=== PATIENT | female | born 2005 | race Caucasian/White ===

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

== ENCOUNTER → 2023-09-30 | Outpatient (CLI) | payer OTHER ==
[~2023-09-30] MED LIST: ALBU90OI INH; AMOX25SU; AMOX25SU PO; AMOX50SU PO; ANTOXYBENA RIGHTEAR; Cefdinir250 MG/5 M PO; Ciprodex Otic7.5 ML RIGHTEAR; IBUPROFEN PRN; ORAL ANTIBIOTIC; PROM12.5S PR; RXANTBENOT AU; RXONDA4ODT MM; SULTRIEL PO
[2023-10-03 14:03] LABS: APTIMA MEDIA TYPE Urine; C. TRACHOMATIS BY TMA Negative (Negative); N. GONORRHOEAE BY TMA Negative (Negative); SPECIMEN SOURCE Urine
== END | disposition home or self-care (01) ==
LOC: LAB SHORT 14:31 → LAB 14:31
PROVIDERS: Obstetrics & Gynecology
DX: Z34.90 Encounter for supervision of normal pregnancy, unspecified, unspecified trimester (principal)
CPT/HCPCS: 36415; 87491; 87591

== ENCOUNTER → 2024-03-10 | Outpatient (CLI) | payer OTHER | END | disposition home or self-care (01) | LOC: LAB SHORT 15:28 → LAB 15:28 | DX: O99.213 Obesity complicating pregnancy, third trimester (principal); E66.9 Obesity, unspecified | CPT/HCPCS: 87081; 87150 ==

== ENCOUNTER 2024-03-30 08:14 | Inpatient (IN) | payer OTHER ==
[~2024-03-30] VITALS: Ht 157.5 cm; Wt 131.0 kg
[2024-03-30] VITALS (22 sets, daily range): BP systolic 112–148; BP diastolic 53–112
[2024-03-30] MEDS ORDERED: FentaNYL Citrate 50 MCG/ML 2 ML Injection IV PRN (11:30)
[2024-03-30] MEDS ORDERED: FentaNYL 2mcg/ml-Bup 0.1% Epd 250 ML EPI PRN (11:30)
[2024-03-30] MEDS ORDERED: Lactated Ringer's 1,000 ML IV SCH ×3 (11:30→14:35)
[2024-03-30] MEDS ORDERED: ePHEDrine Sulfate 50 MG/ML 1ML Injection XX PRN (11:30)
[2024-03-30] MEDS ORDERED: Methylergonovine Maleate 0.2MG / ML 1ML Amp IM PRN (11:35)
[2024-03-30] MEDS ORDERED: OXYTOCIN/RINGER'S LACTATE 500 ML IV PRN (11:35)
[2024-03-30] MEDS ORDERED: Misoprostol 200 MCG Tab PR PRN ×2 (11:35→20:20)
[2024-03-30] MEDS ORDERED: Oxytocin 10 Unit / ML Vial IM PRN (11:35)
[2024-03-30] MEDS ORDERED: Calcium Carbonate 500 MG Tab Chew PO SCH (11:35)
[2024-03-30] MEDS ORDERED: Tranexamic Acid 100 ML IV SCH ×2 (11:35→21:10)
[2024-03-30] MEDS ORDERED: Lactated Ringer's 1,000 ML IV PRN (11:35)
[2024-03-30] MEDS ORDERED: Acetaminophen 500 MG Tab PO PRN (11:35)
[2024-03-30] MEDS ORDERED: Ondansetron HCl 2 MG / ML 2ML Vial IV PRN ×2 (11:35→20:25)
[2024-03-30] MEDS ORDERED: Carboprost Tromethamine 250 MCG/ML 1ML Amp IM PRN (11:35)
[2024-03-30] MEDS ORDERED: Misoprostol 200 MCG Tab BC PRN (11:35)
[2024-03-30 12:15] LABS: BASOPHILS ABSOLUTE AUTO 0.02 K/mm3 (0.00-0.23); BASOPHILS PERCENT AUTO 0 % (0-2); EOSINOPHILS ABSOLUTE AUTO 0.12 K/mm3 (0.00-0.68); EOSINOPHILS PERCENT AUTO 1 % (0-6); Hematocrit 37.5 % (33.0-51.0); Hemoglobin 13.1 g/dL (11.5-16.0); IMMATURE GRAN ABSOLUTE AUTO 0.04 K/mm3 (0.00-0.10); IMMATURE GRAN PERCENT AUTO 0 % (0-1); LYMPHOCYTES ABSOLUTE AUTO 2.09 K/mm3 (0.84-5.20); LYMPHOCYTES PERCENT AUTO 15 % (21-46); MONOCYTES ABSOLUTE AUTO 0.65 K/mm3 (0.16-1.47); MONOCYTES PERCENT AUTO 5 % (4-13); Mean Corpuscular HGB 30.2 pg (26.0-34.0); Mean Corpuscular HGB Conc 34.9 g/dL (31.5-36.5); Mean Corpuscular Volume 86 fL (80-100); NEUTROPHILS PERCENT AUTO 79 % (41-73); Platelet Count 241 K/mm3 (150-400); RDW Coefficient Variation 14.5 % (11.7-14.2); RDW Standard Deviation 45.3 fL (35.1-46.3); Red Blood Cell Count 4.34 M/mm3 (3.80-5.20); White Blood Cell Count 13.62 K/mm3 (4.00-11.30)
[2024-03-30] MEDS ORDERED: PRENATAL TABLE1 EAC2 PO (12:42)
[2024-03-30] MEDS ORDERED: FentaNYL Citrate 50 MCG/ML 2 ML Injection ONE ×2 (13:00→19:14)
[2024-03-30] MEDS ORDERED: OXYTOCIN/RINGER'S LACTATE 500 ML IV SCH ×2 (14:35→20:30)
[2024-03-30] MEDS ORDERED: Citric Acid/Sodium Citrate 30 ML BTL PO STA (17:53)
[2024-03-30] MEDS ORDERED: CeFAZolin Sodium 3,000 MG in NS 100 ML IV SCH (17:55)
[2024-03-30] MEDS ORDERED: Metoclopramide HCl 5MG / ML 2ML Vial IV ONE (17:55)
[2024-03-30] MEDS ORDERED: Bupivacaine 0.5% HCl 5 MG/ML 30MLVIAL ONE (18:12)
[2024-03-30] MEDS ORDERED: Morphine Sulfate/PF 1 MG/ML 10MLVIAL ONE (18:12)
[2024-03-30] MEDS ORDERED: Oxytocin 10 Unit / ML Vial ONE (18:42)
[2024-03-30] MEDS ORDERED: propofoL 20 ML IV ONE ×2 (18:49→19:22)
[2024-03-30] MEDS ORDERED: Phenylephrine HCl 100 MCG/ML-NS 10MLSYR (1MG/10ML) ONE (18:49)
[2024-03-30] MEDS ORDERED: Ondansetron HCl 2 MG / ML 2ML Vial ONE (19:14)
[2024-03-30 19:19] LABS: PCO2 Cord - Arterial 67.5 mmHg (40-50); PO2 Cord - Arterial < 14.0 mmHg (16-20)
[2024-03-30 19:20] LABS: PO2 Cord - Venous 15.7 mmHg (28-32); pH Umbilical Cord - Venous 7.29 (7.26-7.35)
--- NOTE | 2024-03-30 19:20 | NUR ---
03/30/241919 MATT FARAH CHARTING ERROR. CAGLE CATHETER WAS PRESENT PRIOR TO OR ARRIVAL.
[2024-03-30] MEDS ORDERED: Ketorolac Tromethamine 30mg Vial ONE (19:43)
[2024-03-30] MEDS ORDERED: Promethazine HCl 25 MG Tab PO PRN (20:20)
[2024-03-30] MEDS ORDERED: Simethicone 80 MG Chew PO PRN (20:20)
[2024-03-30] MEDS ORDERED: Rho(D) Immune Globulin 300 MCG / SYR IM ONE (20:20)
[2024-03-30] MEDS ORDERED: Polyethylene Glycol 3350 17 gm PO PRN (20:20)
[2024-03-30] MEDS ORDERED: OxyCODONE HCL 5 MG TAB PO PRN ×2 (20:25→20:30)
[2024-03-30] MEDS ORDERED: DiphenhydrAMINE HCL 25 MG Cap PO PRN (20:25)
[2024-03-30] MEDS ORDERED: Lanolin Cream TOP PRN (20:25)
[2024-03-30] MEDS ORDERED: Magnesium Hydroxide Conc 10 ML UDC PO PRN (20:25)
[2024-03-30] MEDS ORDERED: Methylergonovine Maleate 0.2 MG Tab PO PRN (20:30)
[2024-03-30] MEDS ORDERED: Measles/Mumps/Rubella Vaccine 0.5 ML Vial SC ONE (20:30)
[2024-03-30] MEDS ORDERED: OXYTOCIN/RINGER'S LACTATE 16.66666666 ML IV SCH (20:30)
[2024-03-30] MEDS ORDERED: Ketorolac Tromethamine 30mg Vial IV SCH (21:00)
[2024-03-30] MEDS ORDERED: Misoprostol 200 MCG Tab BC ONE (21:10)
[2024-03-31] MEDS ORDERED: Ibuprofen 400 MG Tab PO SCH
[2024-03-31] MEDS ORDERED: Acetaminophen 500 MG Tab PO SCH ×2
[2024-03-31 00:34] VITALS: BP 125/58
[2024-03-31 05:10] VITALS: BP 130/65
--- NOTE | 2024-03-31 06:00 | NUR ---
REPORT FROM LORETTA AUGUSTIN, PT RESTING IN BED HOLDING NB. DENIES ANY NEEDS AT THIS TIME. RATES PAIN A 3/10.
[2024-03-31 06:35] LABS: BASOPHILS ABSOLUTE AUTO 0.05 K/mm3 (0.00-0.23); BASOPHILS PERCENT AUTO 0 % (0-2); EOSINOPHILS ABSOLUTE AUTO 0.04 K/mm3 (0.00-0.68); EOSINOPHILS PERCENT AUTO 0 % (0-6); Hematocrit 30.6 % (33.0-51.0); Hemoglobin 10.7 g/dL (11.5-16.0); IMMATURE GRAN ABSOLUTE AUTO 0.07 K/mm3 (0.00-0.10); IMMATURE GRAN PERCENT AUTO 0 % (0-1); LYMPHOCYTES ABSOLUTE AUTO 1.66 K/mm3 (0.84-5.20); LYMPHOCYTES PERCENT AUTO 9 % (21-46); MONOCYTES ABSOLUTE AUTO 0.78 K/mm3 (0.16-1.47); MONOCYTES PERCENT AUTO 4 % (4-13); Mean Corpuscular HGB 30.2 pg (26.0-34.0); Mean Corpuscular Volume 86 fL (80-100); Mean Platelet Volume 9.7 fL (9.1-12.4); NEUTROPHILS ABSOLUTE AUTO 16.53 K/mm3 (1.96-9.15); NEUTROPHILS PERCENT AUTO 86 % (41-73); Platelet Count 161 K/mm3 (150-400); RDW Coefficient Variation 14.6 % (11.7-14.2); RDW Standard Deviation 46.1 fL (35.1-46.3); Red Blood Cell Count 3.54 M/mm3 (3.80-5.20); White Blood Cell Count 19.13 K/mm3 (4.00-11.30)
[2024-03-31 07:32] VITALS: BP 137/65
[2024-03-31] MEDS ORDERED: Polyethylene Glycol 3350 17 gm PO SCH (09:00)
[2024-03-31] MEDS ORDERED: Prenatal Vit/FE Fumarate/FA 1 Tab PO SCH (09:00)
[2024-03-31] MEDS ORDERED: Ketorolac Tromethamine 30mg Vial IV PRN (11:40)
[2024-03-31 11:43] VITALS: BP 148/84
[2024-03-31 14:39] LABS: Creatinine, Urine Random 44.1 mg/dL (27.00-270.00); Protein, Urine Random 34.3 mg/dL (0.0-11.9); Protein/Creat Ratio, Ur Random 0.8
[2024-03-31 15:52] VITALS: BP 145/78
--- NOTE | 2024-03-31 16:13 | NUR ---
Pt back from ambulating in hallway, reports able to pass flatus a few times. Denies other needs at this time.
[2024-03-31 16:23] LABS: Albumin, Blood 2.1 g/dL (3.4-5.0); Albumin/Globulin Ratio 0.5 (0.8-1.8); Bilirubin, Total 0.7 mg/dL (0.1-1.0); Creatinine, Blood 0.66 mg/dL (0.40-1.00); Globulin, Blood 4.1 g/dL (2.2-4.0); Potassium, Blood 3.6 mmol/L (3.5-5.5); Total Protein, Blood 6.2 g/dL (6.4-8.2)
[2024-03-31 20:59] VITALS: BP 137/72
[2024-04-01] VITALS (25 sets, daily range): BP systolic 124–173; BP diastolic 60–98
--- NOTE | 2024-04-01 08:27 | NUR ---
CNM at bedside for last 2 elevated BP. Cuff changed to upper arm, larger cuff after first elevated BP and repeat also elevated. Pt is also having 5/10 pain and was just medicated by RN. Will repeat in 30 minutes per CNM to evaluate if elevated BP related to pain.
--- NOTE | 2024-04-01 14:20 | NUR ---
BRUCE DESAI, RETURNED CALL REGARDING SEVERE RANGE BLOOD PRESSURES. ORDERS TO START MAGNESIUM X12 HOURS AND NIFEDIPNE 30XL RECEIVED. NO ADDITIONAL LAB ORDERS AT THIS TIME.
[2024-04-01] MEDS ORDERED: Magnesium Sulfate 500 ML IV SCH (14:25)
[2024-04-01] MEDS ORDERED: Lactated Ringer's 1,000 ML IV SCH (14:25)
[2024-04-01] MEDS ORDERED: Calcium Gluconate 0.465 mEq/ml 10 ml Vial IV PRN (14:25)
[2024-04-01] MEDS ORDERED: Magnesium Sul 4 GM/Water100 ML 100 ML IV ONE (14:25)
[2024-04-01] MEDS ORDERED: Magnesium Sulf 2 GM/Water 50ML 50 ML IV SCH (14:25)
[2024-04-01] MEDS ORDERED: NIFEdipine 30 MG TabCR PO SCH (14:30)
[2024-04-01 18:21] LABS: BASOPHILS ABSOLUTE AUTO 0.02 K/mm3 (0.00-0.23); BASOPHILS PERCENT AUTO 0 % (0-2); EOSINOPHILS ABSOLUTE AUTO 0.13 K/mm3 (0.00-0.68); EOSINOPHILS PERCENT AUTO 1 % (0-6); Hematocrit 33.4 % (33.0-51.0); Hemoglobin 11.3 g/dL (11.5-16.0); IMMATURE GRAN ABSOLUTE AUTO 0.12 K/mm3 (0.00-0.10); IMMATURE GRAN PERCENT AUTO 1 % (0-1); LYMPHOCYTES ABSOLUTE AUTO 1.53 K/mm3 (0.84-5.20); LYMPHOCYTES PERCENT AUTO 11 % (21-46); MONOCYTES ABSOLUTE AUTO 0.46 K/mm3 (0.16-1.47); MONOCYTES PERCENT AUTO 3 % (4-13); Mean Corpuscular HGB 30.2 pg (26.0-34.0); Mean Corpuscular HGB Conc 33.8 g/dL (31.5-36.5); Mean Corpuscular Volume 89 fL (80-100); Mean Platelet Volume 9.3 fL (9.1-12.4); NEUTROPHILS ABSOLUTE AUTO 11.62 K/mm3 (1.96-9.15); NEUTROPHILS PERCENT AUTO 84 % (41-73); Platelet Count 238 K/mm3 (150-400); RDW Coefficient Variation 15.2 % (11.7-14.2); Red Blood Cell Count 3.74 M/mm3 (3.80-5.20); White Blood Cell Count 13.88 K/mm3 (4.00-11.30)
[2024-04-01 19:02] LABS: Albumin, Blood 2.3 g/dL (3.4-5.0); Albumin/Globulin Ratio 0.5 (0.8-1.8); Bilirubin, Total 0.5 mg/dL (0.1-1.0); Bun/Creatinine Ratio 10.9 (12.0-20.0); Calcium, Blood 9.1 mg/dL (8.5-10.1); Creatinine, Blood 0.64 mg/dL (0.40-1.00); Globulin, Blood 4.5 g/dL (2.2-4.0); Potassium, Blood 3.3 mmol/L (3.5-5.5); Total Protein, Blood 6.8 g/dL (6.4-8.2)
--- NOTE | 2024-04-01 19:38 | NUR ---
UPDATE; CALL PLACED TO TESHA GOMEZ CNM REGARDING THE RESULTS OF THE PTS EKG. EKG SHOWED SINUS TACH. TESHA NOTIFIED THAT PTS HEART RATE CONTINUES TO SUSTAIN IN THE 120-130'S. CURRENT B/P IS 143/94. THIS RN ASKED IF IT WAS POSSIBLE TO GIVE THE PT LABETALOL WELL, TESHA ABRRERA TO CONSULT WITH REGARDING THIS. TESHA BARRERA UPDATED THAT PT CONTINUES TO BE ASYMPTOMATIC OF HYPERTENSION/TACHYCARDIA. PT DENIES ANY CHEST PAIN, PALPATATIONS, SOB, HEADACHE, VISUAL CHANGES OR EPIGASTRIC PAIN. AT THIS TIME, ORDERS TO CONTINUE MONITORING PT.
--- NOTE | 2024-04-01 21:45 | NUR ---
CALL FROM PROVIDER; CALL FROM TESHA GOMEZ REGARDING PREVIOUS CALL, REFER TO PREVIOUS NOTE. PER Lisseth GOMEZ HE AND DR. INGRAM CONSULTED AND AT THIS TIME THEY WOULD LIKE TO NOT GIVE ANY OTHER ANTIHYPERTENSIVE MEDS. PATRICIA Byrd UPDATED THAT PTS HEART RATE IS 100-110'S.
--- NOTE | 2024-04-01 22:25 | NUR ---
CALL PLACED TO PROVIDER; SPOKE WITH Lisseth GOMEZ REGARDING PTS B/P'S, THE MOST RECENT BEING . GISELLE TO CONSULT WITH AND CALL ME BACK WITH ORDERS.
--- NOTE | 2024-04-01 22:27 | NUR ---
CALL FROM GISELLE; PER Lisseth GOMEZ, HIM AND CONSULTED AND AT THIS TIME GIVE THE PT 200MG OF LABETALOL PO NOW AND THEN START THE PT ON 200MG OF PO LABETALOL BID STARTING 04/02/24 AT 0900. IF PTS SYSTOLIC PRESSURE IS NOT LESS THAN 160 IN 1 HOUR FROM PO LABETALOL ADMINISTRATION, GIVE 30MG OF PO PROCARDIA XL.
[2024-04-01] MEDS ORDERED: Labetalol HCL 100 MG TAB PO ONE (22:35)
[2024-04-02] VITALS (12 sets, daily range): BP systolic 131–155; BP diastolic 66–93
--- NOTE | 2024-04-02 01:35 | NUR ---
CONFIRMED WITH Lisseth GOMEZ CNM THAT MAGNESIUM SULFATE DRIP IS TO BE TURNED OFF AT 12 HOURS AFTER MAGNESIUM SULFATE INITATION TIME. PER Lisseth GOMEZ CNM, TURN OFF MAGNESIUM SULFATE DRIP AT 0317 TODAY, 04/02/2024.
--- NOTE | 2024-04-02 03:18 | NUR ---
MAGNESIUM DRIP OFF AT 0318.
--- NOTE | 2024-04-02 06:05 | NUR ---
UPDATE TO PROVIDER ON PTS STATUS, GISELLE BARRERA UPDATED ON PTS LAST B/P AND NEURO EXAMINE. CONTINUE TO MONITOR AT THIS TIME.
[2024-04-02] MEDS ORDERED: Labetalol HCL 100 MG TAB PO SCH (09:00)
--- NOTE | 2024-04-02 17:00 | NUR ---
Dr. Rojas updated about continued elevated BPs. Pt ok to discharge home today, take previously prescibed medication, labetalol, and return to [facility] tomorrow for PPFU and bp check.
[2024-04-02] MEDS ORDERED: LABE200 PO (17:13)
[2024-04-02] MEDS ORDERED: NIFE30ER PO (17:14)
[2024-04-02] MEDS ORDERED: OXYC5 PO (17:14)
[2024-04-02] MEDS ORDERED: IBUP800 PO (17:15)
--- NOTE | 2024-04-02 18:15 | NUR ---
No acute changes t/o shift. ID bands matched w/nb and verification form. Pt verbalized understanding of follow up at [facility] and medication to take this evening and in am. Denies additional needs/questions/concerns. Pt d/c'd home ambulatory to care of SO and family.
== END 2024-04-02 18:15 | disposition home or self-care (01) | DRG 788 ==
LOC: OBS 08:14 → BC 08:14 → OBS 10:59 → BC 11:00
PROVIDERS: Advanced Practice Midwife; Family Medicine; Obstetrics & Gynecology; ADMIT Obstetrics & Gynecology
PROC: 10H07YZ Insertion of Other Device into Products of Conception, Via Natural or Artificial Opening (ICD-10-PCS; 2024-03-30)
PROC: 10D00Z1 Extraction of Products of Conception, Low, Open Approach (ICD-10-PCS; principal; 2024-03-30 17:45)
DX: O76 Abnormality in fetal heart rate and rhythm complicating labor and delivery (principal); O14.94 Unspecified pre-eclampsia, complicating childbirth; O99.214 Obesity complicating childbirth; E66.01 Morbid (severe) obesity due to excess calories; Z3A.38 38 weeks gestation of pregnancy; Z37.0 Single live birth; O99.334 Smoking (tobacco) complicating childbirth; F17.200 Nicotine dependence, unspecified, uncomplicated; Z88.1 Allergy status to other antibiotic agents; Z79.82 Long term (current) use of aspirin; Z79.899 Other long term (current) drug therapy
CPT/HCPCS: 36415; 51702; 59025; 80053; 82570; 82803; 84156; 85025; 86850; 86900; 86901; 86923; 93005; 93010; 99214; A9270; J0690; J1885; J2274; J2371; J2405; J2590; J2704; J2765; J3010; J3475; J7120; T2101

== ENCOUNTER 2024-08-13 14:45 | Emergency (ER) | payer OTHER ==
[~2024-08-13] VITALS: Ht 157.5 cm; Wt 127.0 kg
[~2024-08-13 14:45] MED LIST changes: +IBUP800 PO; +LABE200 PO; +NIFE30ER PO; +OXYC5 PO; +PRENATAL TABLE1 EAC2 PO
[2024-08-13] MEDS ORDERED: Cipro500 MG PO (14:53)
[2024-08-13] MEDS ORDERED: ONDA4ODT (14:54)
[2024-08-13 15:29] LABS: BASOPHILS ABSOLUTE AUTO 0.02 K/mm3 (0.00-0.23); BASOPHILS PERCENT AUTO 0 % (0-2); EOSINOPHILS ABSOLUTE AUTO 0.01 K/mm3 (0.00-0.68); EOSINOPHILS PERCENT AUTO 0 % (0-6); Hematocrit 41.3 % (33.0-51.0); Hemoglobin 14.2 g/dL (11.5-16.0); IMMATURE GRAN ABSOLUTE AUTO 0.03 K/mm3 (0.00-0.10); IMMATURE GRAN PERCENT AUTO 0 % (0-1); LYMPHOCYTES PERCENT AUTO 9 % (21-46); MONOCYTES ABSOLUTE AUTO 0.82 K/mm3 (0.16-1.47); MONOCYTES PERCENT AUTO 7 % (4-13); Mean Corpuscular HGB 27.8 pg (26.0-34.0); Mean Corpuscular HGB Conc 34.4 g/dL (31.5-36.5); Mean Corpuscular Volume 81 fL (80-100); Mean Platelet Volume 9.8 fL (9.1-12.4); NEUTROPHILS ABSOLUTE AUTO 10.12 K/mm3 (1.96-9.15); NEUTROPHILS PERCENT AUTO 84 % (41-73); Platelet Count 175 K/mm3 (150-400); RDW Coefficient Variation 13.4 % (11.7-14.2); RDW Standard Deviation 39.3 fL (35.1-46.3)
[2024-08-13 16:04] LABS: Albumin, Blood 3.9 g/dL (3.4-5.0); Albumin/Globulin Ratio 0.8 (0.8-1.8); Bilirubin, Total 1.4 mg/dL (0.1-1.0); Bun/Creatinine Ratio 12.4 (12.0-20.0); Calcium, Blood 9.2 mg/dL (8.5-10.1); Creatinine, Blood 0.73 mg/dL (0.40-1.00); Globulin, Blood 4.7 g/dL (2.2-4.0); Potassium, Blood 3.4 mmol/L (3.5-5.5); Total Protein, Blood 8.6 g/dL (6.4-8.2)
[2024-08-13 16:08] LABS: Source, Urine Clean Catch
[2024-08-13 16:25] LABS: Appearance, Urine Hazy (Clear); Bilirubin, Urine Neg (Neg); Blood, Urine 4+ (Neg); Color, Urine Yellow (P-Yellow); Glucose Qualitative, Urine Neg (Neg); Ketones, Urine 3+ (Neg); Leukocyte Esterase, Urine 1+ (Neg); Nitrite, Urine Neg (Neg); Protein, Urine 3+ (Neg); Urobilinogen, Urine 1+ (Normal)
[2024-08-13 16:32] LABS: Bacteria Mod /hpf; Mucus Light (0-Heavy); Squamous Epithelial Cells Few /hpf (Few)
[2024-08-13] MEDS ORDERED: CefTRIAXone Sodium 1,000 MG in NS 100 ML IV ONE (17:10)
[2024-08-13] MEDS ORDERED: NS 1,000 ML IV SCH (17:10)
[2024-08-13 17:30] VITALS: BP 143/79
== END 2024-08-13 18:31 | disposition home or self-care (01) ==
LOC: ER 14:45
PROVIDERS: Emergency Medicine
DX: N12 Tubulo-interstitial nephritis, not specified as acute or chronic (principal); Z79.899 Other long term (current) drug therapy; Z88.1 Allergy status to other antibiotic agents
CPT/HCPCS: 36415; 74176; 80053; 81001; 83605; 84703; 85025; 87040; 87086; 96365; 99284-25; J0696; J7030

== ENCOUNTER → 2025-02-08 | Outpatient (CLI) | payer OTHER ==
[~2025-02-08] MED LIST changes: +Cipro500 MG PO; +ONDA4ODT
[2025-02-10 13:10] LABS: C. TRACHOMATIS BY TMA,THINPREP Negative (Negative); N. GONORRHOEAE BY TMA,THINPREP Negative (Negative)
== END ==
LOC: LAB 09:49 → LAB SHORT 09:49
PROVIDERS: Obstetrics & Gynecology
DX: Z01.419 Encounter for gynecological examination (general) (routine) without abnormal findings (principal); Z11.3 Encounter for screening for infections with a predominantly sexual mode of transmission
CPT/HCPCS: 87491; 87591; G0145